=== PATIENT | male | born 1995 | race African-American/Black ===

== ENCOUNTER 2017-10-28 22:32 | Emergency (ER) | payer MEDICAID ==
[~2017-10-28] VITALS: Ht 172.7 cm; Wt 63.6 kg
[2017-10-29 03:14] LABS: BASOPHILS % 0.5 % (0.0-2.0); EOSINOPHILS % 0.3 % (0.0-5.0); HEMATOCRIT. 46.9 % (42.0-52.0); HEMOGLOBIN. 14.9 g/dL (14.0-18.0); LYMPHOCYTES % 9.7 % (20.0-50.0); MEAN CORPUSCULAR HEMOGLOBIN 21.5 pg (28.0-32.0); MEAN CORPUSCULAR VOLUME 67.6 fL (80.0-94.0); MEAN PLATELET VOLUME 8.2 fl (7.4-10.4); MONOCYTES % 9.8 % (2.0-8.0); NEUTROPHILS % 79.7 % (40.0-76.0); PLATELET 190 x1000/uL (130-400); RED BLOOD CELL COUNT 6.94 mill/uL (4.7-6.1); RED CELL DISTRIBUTION WIDTH 15.3 % (11.6-14.6)
[2017-10-29 03:16] LABS: PLATELET ESTIMATE NORMAL
[2017-10-29 03:30] LABS: CARBON DIOXIDE 26 mEq/L (21-32); CHLORIDE 105 mEq/L (98-107); TROPONIN I < 0.02 ng/mL (0.00-0.04)
[2017-10-29 04:00] VITALS: BP 112/60
== END 2017-10-29 04:25 | disposition home or self-care (01) ==
LOC: ER 22:33
DX: R07.9 Chest pain, unspecified (principal); F17.200 Nicotine dependence, unspecified, uncomplicated
CPT/HCPCS: 36415; 71010; 80048; 84484; 85025; 85379; 93005; 99285; Z7610

== ENCOUNTER 2018-07-02 01:29 | Emergency (ER) | payer MEDICAID ==
[~2018-07-02] VITALS: Ht 172.7 cm; Wt 64.0 kg
[2018-07-02 03:30] VITALS: BP 134/92
== END 2018-07-02 03:33 | disposition home or self-care (01) ==
LOC: ER 01:29
DX: S61.511A Laceration without foreign body of right wrist, initial encounter (principal); W25.XXXA Contact with sharp glass, initial encounter; Y93.89 Activity, other specified; Y92.89 Other specified places as the place of occurrence of the external cause; Y99.0 Civilian activity done for income or pay; F12.90 Cannabis use, unspecified, uncomplicated; F17.210 Nicotine dependence, cigarettes, uncomplicated
CPT/HCPCS: 12001; 99283

== ENCOUNTER 2018-11-02 11:33 | Emergency (ER) | payer MEDICAID ==
[~2018-11-02] VITALS: Ht 175.3 cm; Wt 64.0 kg
[2018-11-02 12:29] VITALS: BP 128/81
[2018-11-02] MEDS ORDERED: IBUPROFEN 600MG TABLET PO ONE (15:00)
== END 2018-11-02 14:52 | disposition home or self-care (01) ==
LOC: ER 11:33
DX: L84 Corns and callosities (principal); F17.210 Nicotine dependence, cigarettes, uncomplicated; F12.90 Cannabis use, unspecified, uncomplicated
CPT/HCPCS: 99282

== ENCOUNTER 2024-03-15 18:50 | Emergency (ER) | payer MEDICAID, OTHER ==
[~2024-03-15] VITALS: Ht 172.7 cm; Wt 64.0 kg
[2024-03-15 18:58] VITALS: BP 128/83; PULSE 87; RESP 15; TEMP 98.3; O2SAT 100
== END 2024-03-16 06:10 | disposition left against medical advice (07) ==
LOC: ER 18:50
DX: J02.9 Acute pharyngitis, unspecified (principal); Z53.21 Procedure and treatment not carried out due to patient leaving prior to being seen by health care provider
CPT/HCPCS: 99281

== ENCOUNTER 2025-01-01 09:02 | Emergency (ER) | payer OTHER ==
[~2025-01-01] VITALS: Ht 172.7 cm; Wt 72.0 kg
[2025-01-01 09:16] VITALS: TEMP 37.3; O2SAT 97
[2025-01-01 09:48] LABS: HEMATOCRIT. 38.5 % (42.0-52.0); MEAN CORPUSCULAR HEMOGLOBIN 21.2 pg (28.0-32.0); MEAN CORPUSCULAR HGB CONC 33.8 g/dL (31.0-37.0); MEAN CORPUSCULAR VOLUME 62.8 fL (80.0-94.0); MEAN PLATELET VOLUME 8.8 fl (7.4-10.4); PLATELET 106 x1000/uL (130-400); RED BLOOD CELL COUNT 6.13 mill/uL (4.7-6.1); WHITE BLOOD COUNT 2.8 x1000/uL (4.5-11.0)
[2025-01-01 09:56] LABS: DIFFERENTIAL COMMENT 1
[2025-01-01 10:02] LABS: CHLORIDE 94 mEq/L (98-107); POTASSIUM 3.8 mEq/L (3.5-5.1); SODIUM 128 mEq/L (136-145)
[2025-01-01 10:03] LABS: CALCIUM 8.1 mg/dL (8.7-10.4); CARBON DIOXIDE 26 mEq/L (21-32)
[2025-01-01 10:08] LABS: CREATININE 1.2 mg/dL (0.6-1.3); GLUCOSE 99 mg/dL (70-105); UREA NITROGEN BLOOD 16 mg/dL (9-23)
[2025-01-01 10:10] LABS: ALANINE AMINOTRANSFERASE 261 IU/L (10-49); ALBUMIN 3.3 g/dL (3.2-4.8); ASPARTATE AMINOTRANSFERASE 494 IU/L (<34)
[2025-01-01 10:11] LABS: BILIRUBIN DIRECT 5.7 mg/dL (<=3.0); BILIRUBIN TOTAL 7.6 mg/dL (0.1-1.0); PROTEIN TOTAL 5.8 g/dL (6.0-8.3)
[2025-01-01] MEDS: ONDANSETRON 4MG ODT PO ONE (10:40)
[2025-01-01] MEDS: LOPERAMIDE HCL 2MG CAPSULE PO ONE (10:40)
[2025-01-01] MEDS: SODIUM CHLORIDE 0.9% 1,000 ML IV ONE (10:41)
[2025-01-01 11:38] LABS: ANISOCYTOSIS 1+; MICROCYTOSIS 2+; PLATELET ESTIMATE SLIGHTLY DECREASED
[2025-01-01 12:07] LABS: CLARITY URINE CLOUDY (CLEAR); COLOR URINE DARK YELLOW (YELLOW); GLUCOSE URINE NEGATIVE (NEGATIVE); KETONES URINE NEGATIVE (NEGATIVE); LEUKOCYTE ESTERASE URINE NEGATIVE (NEGATIVE); NITRITE URINE NEGATIVE (NEGATIVE); OCCULT BLOOD URINE 1+ (NEGATIVE); PROTEIN URINE 2+ (NEGATIVE); SPECIFIC GRAVITY URINE 1.063 (1.005-1.030); UROBILINOGEN URINE >8.0 E.U./dL (0.2-1.0)
[2025-01-01 12:25] LABS: HEPATITIS B SURFACE ANTIGEN NEGATIVE (Negative)
[2025-01-01] MEDS: CEFTRIAXONE 1GM/50ML 50 ML IV NR (12:32)
[2025-01-01 12:41] LABS: *AMPHETAMINES SCREEN URINE NEGATIVE (NEGATIVE); *BARBITURATES SCREEN URINE NEGATIVE (NEGATIVE); *BENZODIAZEPINES SCREEN URINE NEGATIVE (NEGATIVE); *COCAINE SCREEN URINE NEGATIVE (NEGATIVE); CANNABINOID URINE SCREEN PRESUMPTIVE POSITIVE (NEGATIVE); METHADONE URINE SCREEN NEGATIVE (NEGATIVE); OPIATES URINE SCREEN NEGATIVE (NEGATIVE); PHENCYCLIDINE URINE SCREEN NEGATIVE (NEGATIVE)
[2025-01-01 12:42] LABS: ECSTASY MDMA SCREEN URINE NEGATIVE (NEGATIVE)
[2025-01-01 12:45] LABS: HEPATITIS A AB IGM NEGATIVE (Negative)
[2025-01-01 12:46] LABS: HEPATITIS B CORE AB IGM NEGATIVE (Negative)
[2025-01-01 12:47] LABS: HEPATITIS C AB NON REACTIVE (Neg) (Negative)
[2025-01-01 12:55] LABS: INR 1.3; PROTHROMBIN TIME 14.2 sec (9.6-11.0)
[2025-01-01 12:58] LABS: BACTERIA URINE 1+; RBC URINE 0-2 /hpf (0-2); SQUAMOUS EPITHELIAL CELL URINE NONE SEEN /lpf (RARE/1+)
[2025-01-01 12:59] LABS: WBC URINE 0-2 /hpf (0-2)
[2025-01-01] MEDS ORDERED: IOHEXOL-350 100 ML BOTTLE ONE (13:19)
[2025-01-01] MEDS ORDERED: GUAIFENESIN 200MG/10ML SUGAR FREE UDC PO PRN (14:30)
[2025-01-01] MEDS ORDERED: ONDANSETRON HCL 4MG/2ML INJ IV PRN (14:30)
[2025-01-01] MEDS ORDERED: MAGNESIUM/ALUMINUM HYDROXIDE/SIMETHICONE 30ML UDC PO PRN (14:30)
[2025-01-01] MEDS ORDERED: CLONIDINE 0.1MG TABLET PO PRN (14:30)
[2025-01-01] MEDS ORDERED: ACETAMINOPHEN 325MG TABLET PO PRN ×2 (14:30)
[2025-01-01] MEDS ORDERED: DOCUSATE SODIUM 100MG CAPSULE PO PRN (14:30)
[2025-01-01] MEDS ORDERED: IPRATROPIUM/ALBUTEROL 0.5-3(2.5)MG/3ML NEB HHN PRN (14:30)
[2025-01-01] MEDS ORDERED: SODIUM CHLORIDE 0.9% 1,000 ML IV SCH (14:30)
[2025-01-01 15:34] LABS: LACTIC ACID 2.8 mmol/L (0.4-2.0)
[2025-01-01 15:50] LABS: ACETAMINOPHEN 5 ug/mL (10-30)
[2025-01-01] MEDS: DEXT 5%/0.9% NACL 1,000 ML IV SCH (16:08)
[2025-01-01 16:35] VITALS: BP 117/68; PULSE 99; RESP 17; O2SAT 98
[2025-01-01] MEDS ORDERED: PIPERACILLIN/TAZO 3.375G/50ML 100 ML IV SCH (22:00)
[2025-01-02] MEDS ORDERED: THIAMINE HCL 100MG TABLET PO SCH (09:00)
[2025-01-02] MEDS ORDERED: FOLIC ACID 1MG TABLET PO SCH (09:00)
[2025-01-02] MEDS ORDERED: PANTOPRAZOLE SODIUM 40 MG/VIAL IV SCH (09:00)
== END 2025-01-01 16:36 | disposition left against medical advice (07) ==
LOC: ER 09:02 → EDBEDREQTM 12:32 → EDBEDREQ 12:33 → ER 16:36
DX: K72.00 Acute and subacute hepatic failure without coma (principal)
CPT/HCPCS: 80076; 80305; 80048; 81003; 80307; 80320; 83605; 83690; 85025; 85610; 87340; 87040; 36415; 86705; 86709; 84145; 71045; 74177; 76700; 96361; 96365; 99285; Q9967; Q0162; J0696; J7030; Z7610; G0480